=== PATIENT | male | born 1990 | race American Indian/Alaskan Native ===

== ENCOUNTER 2017-06-25 14:06 | Emergency (ER) | payer BC ==
[2017-06-25 15:22] LABS: Basophils # (Auto) 0.1 K/mm3 (0.0-0.1); Basophils % (Auto) 0.9 % (0.0-1.8); Eosinophils % (Auto) 0.8 % (0.0-4.3); Hematocrit 50.3 % (35.5-45.6); Hemoglobin 16.3 gm/dl (11.8-15.2); Lymphocytes # (Auto) 1.6 K/mm3 (1.2-5.4); Lymphocytes % (Auto) 29.2 % (13.4-35.0); Mean Corpuscular HGB Conc 33 % (32-34); Mean Corpuscular Hemoglobin 32 pg (28-32); Mean Corpuscular Volume 100 fl (84-94); Monocytes # (Auto) 0.5 K/mm3 (0.0-0.8); Monocytes % (Auto) 8.3 % (0.0-7.3); Platelet Count 339 K/mm3 (140-440); Red Blood Count 5.05 M/mm3 (3.65-5.03); Red Cell Distribution Width 12.8 % (13.2-15.2)
[2017-06-25 15:44] LABS: Alanine Aminotransferase 32 units/L (7-56); Albumin 4.6 g/dL (3.9-5); BUN/Creatinine Ratio 10; Blood Urea Nitrogen 8 mg/dL (9-20); Calcium 9.6 mg/dL (8.4-10.2); Hemolysis Index 14
[2017-06-25 17:57] LABS: Bilirubin,Urine NEG (Negative); Blood,Urine NEG (Negative); Color,Urine Yellow (Yellow); Mucus,Urine 3+ /HPF; Nitrite,Urine NEG (Negative); WBC,Urine < 1.0 /HPF (0.0-6.0)
[2017-06-25] MEDS ORDERED: ZOFRAN ODT PO ONE (19:19)
[2017-06-25] MEDS ORDERED: ZOFRAN ODT ONE (19:21)
[2017-06-25 20:43] VITALS: BP 136/84
--- NOTE | 2017-06-25 21:10 | Emergency Department Report ---
ED N/V/D HPI - General Chief complaint: Nausea/Vomiting/Diarrhea Stated complaint: N/V/D X4 DAYS Time Seen by Provider: 06/25/17 20:10 Source: patient Mode of arrival: Ambulatory Limitations: No Limitations - History of Present Illness Initial comments: Patient is a 27-year-old male that presents emergency room via ems with complaints of nausea vomiting diarrhea 4 days. Patient states she has not been able to hold any food or liquids down for 4 days. Patient denies fever and chills. Patient denies shortness of breath and chest pain. Patient complains of cramps in his abdomen when he has diarrhea and mild abd pain. Patient states she has sick contacts in the house. MD complaint: nausea, vomiting, diarrhea -: Gradual, days(s) (times 4 days) Description of Vomiting: watery Description of Diarrhea: water Location: diffuse Severity: mild Pain Scale: 2 Quality: cramping Improves with: rest Worsens with: eating, bowel movement, movement Context: sick contacts Associated Symptoms: nausea/vomiting - Related Data Previous Rx's Medication Instructions Recorded Last Taken Type Ondansetron [Zofran ODT TAB] 8 mg PO Q8HR PRN #20 tab.rapdis 06/26/17 Unknown Rx Allergies Allergy/AdvReac Type Severity Reaction Status Date / Time Fish Containing Products Allergy Swelling Verified 06/25/17 14:42 peanut Allergy Swelling Verified 06/25/17 14:42 ED Review of Systems ROS: Stated complaint: N/V/D X4 DAYS Other details as noted in HPI Constitutional: denies: chills, fever Eyes: denies: eye pain, eye discharge, vision change ENT: denies: ear pain, throat pain Respiratory: denies: cough, shortness of breath, wheezing Cardiovascular: denies: chest pain, palpitations Endocrine: no symptoms reported Gastrointestinal: nausea, vomiting, diarrhea. denies: abdominal pain Genitourinary: denies: urgency, dysuria Musculoskeletal: denies: back pain, joint swelling, arthralgia Skin: denies: rash, lesions Neurological: denies: headache, weakness, paresthesias Psychiatric: denies: anxiety, depression Hematological/Lymphatic: denies: easy bleeding, easy bruising ED Past Medical Hx - Past Medical History Previous Medical History?: No - Surgical History Past Surgical History?: No - Family History Family history: hypertension - Social History Smoking Status: Current Some Day Smoker Substance Use Type: Alcohol, Marijuana - Medications Home Medications: Home Medications Medication Instructions Recorded Confirmed Last Taken Type Ondansetron [Zofran ODT TAB] 8 mg PO Q8HR PRN #20 tab.rapdis 06/26/17 Unknown Rx ED Physical Exam - General Limitations: No Limitations General appearance: alert, in no apparent distress - Head Head exam: Present: atraumatic, normocephalic - Eye Eye exam: Present: normal appearance - ENT ENT exam: Present: mucous membranes moist - Neck Neck exam: Present: normal inspection - Respiratory Respiratory exam: Present: normal lung sounds bilaterally. Absent: respiratory distress - Cardiovascular Cardiovascular Exam: Present: regular rate, normal rhythm. Absent: systolic murmur, diastolic murmur, rubs, gallop - GI/Abdominal GI/Abdominal exam: Present: soft, normal bowel sounds - Rectal Rectal exam: Present: deferred - Extremities Exam Extremities exam: Present: normal inspection - Back Exam Back exam: Present: normal inspection - Neurological Exam Neurological exam: Present: alert, oriented X3 - Psychiatric Psychiatric exam: Present: normal affect, normal mood - Skin Skin exam: Present: warm, dry, intact, normal color. Absent: rash ED Course Vital Signs 06/25/17 06/25/17 14:42 20:42 Temperature 98 F 97.8 F Pulse Rate 64 56 L Respiratory 18 18 Rate Blood Pressure 137/91 Blood Pressure 136/84 [Left] O2 Sat by Pulse 100 100 Oximetry - Reevaluation(s) Reevaluation #1: 06/25/17 23:06---Even after fluids and Zofran patient is having uncontrolled nausea and patient actually started to complain of worsening abdominal pain, patient states the pain is now at a 4 out of 10 and diffuse. will scan abd Reevaluation #2: Patient tolerated by mouth challenge. Patient denies nausea vomiting 06/26/17 01:18 ED Medical Decision Making - Lab Data Result diagrams: 06/25/17 15:09 06/25/17 15:09 - Radiology Data Radiology results: report reviewed No acute findings on CT scan of abdomen - Medical Decision Making Patient stable for discharge. All labs and diagnostics reviewed and discussed with patient. Patient tolerated by mouth challenge. - Differential Diagnosis viral gastroenteritis. Colitis. Abdominal pain. Critical care attestation.: If time is entered above; I have spent that time in minutes in the direct care of this critically ill patient, excluding procedure time. ED Disposition Clinical Impression: Gastroenteritis, Dehydration, Nausea vomiting and diarrhea, Abdominal pain Disposition: TO HOME OR SELFCARE Is pt being admited?: No Does the pt Need Aspirin: No Condition: Stable Instructions: Acute Nausea and Vomiting (ED), Abdominal Pain (ED), Gastroenteritis (ED) Additional Instructions: Patient to follow up with primary care in 3-5 days. Patient to return to the condition worsens. Patient to take Tylenol or ibuprofen when necessary. Patient increase water. Patient to eat a Wandy diet. And clear liquids. Patient to rest. Prescriptions: Ondansetron [Zofran ODT TAB] 8 mg PO Q8HR PRN #20 tab.rapdis PRN Reason: Nausea And Vomiting Referrals: CHERYL CALVERT MD [Primary Care Provider] - 3-5 Days Time of Disposition: 01:21
[2017-06-25] MEDS ORDERED: LACTATED RINGERS 1,000 ML IV ONE (21:12)
[2017-06-25] MEDS ORDERED: ZOFRAN ONE (21:55)
[2017-06-25] MEDS ORDERED: ZOFRAN IV ONE (22:07)
--- NOTE | 2017-06-26 00:02 | Cat Scan Report ---
FINAL REPORT PROCEDURE: CT ABDOMEN PELVIS WO CON TECHNIQUE: Computerized axial tomography of the abdomen and pelvis was performed without intravenous contrast. This study is performed without intravascular contrast material and its sensitivity for abdominal and pelvic pathology, including neoplasms, inflammation, abscess, free fluid, thrombosis, arterial dissection and infarction, is reduced compared with a contrast enhanced study. HISTORY: abd pain N/V/D COMPARISON: No prior studies are available for comparison. FINDINGS: Visualized lower thorax: No significant abnormality. Liver: Normal size and attenuation. Spleen: Normal size and attenuation. Gallbladder and biliary system: Normal. Pancreas: Normal. Adrenals: Normal. Kidneys: Kidneys have a normal size. No hydronephrosis. There are small renal calculi noted in the corticomedullary region of the left kidney. These measure between 1 and 2 millimeters.. GI tract: The stomach is normal. The small bowel has a normal caliber. The cecum, appendix and colon are normal.. Lymph nodes and mesentery: Normal. Vasculature: Normal. Bladder: Normal. Reproductive organs: Normal. Peritoneum: No free fluid. Musculoskeletal structures: No significant abnormality. Other: None. IMPRESSION: There is no evidence of intestinal or urinary tract obstruction. No ileus or enteritis. The appendix is normal..
== END 2017-06-26 01:50 | disposition home or self-care (01) ==
LOC: ED 14:06
DX: K52.9 Noninfective gastroenteritis and colitis, unspecified (principal); E86.0 Dehydration; F17.200 Nicotine dependence, unspecified, uncomplicated; F12.10 Cannabis abuse, uncomplicated; Z91.013 Allergy to seafood; Z91.010 Allergy to peanuts
CPT/HCPCS: 36415; 74176; 80053; 81001; 85025; 96361; 96374; 99284; J2405; J7120; Q0162